=== PATIENT | female | born 1965 ===

== ENCOUNTER 2017-04-15 09:25 | Emergency (ER) | payer BC, OTHER ==
[2017-04-15 10:41] VITALS: BP 116/71
--- NOTE | 2017-04-15 10:46 | UC ---
Respiratory Complaint HPI - HPI Summary HPI Summary: Has been stressed recently at work--has now developed a cough, with chest congestion and left ear pain unsure about fever but has felt warm and is sleeping poorly - History of Current Complaint Chief Complaint: UCRespiratory Stated Complaint: COUGH,EARS,NECK Time Seen by Provider: 04/15/17 10:27 Hx Obtained From: Patient Hx Last Menstrual Period: YEARS ?: No Onset/Duration: Sudden Onset, Lasting Days, Still Present Timing: Constant Severity Initially: Moderate Severity Currently: Moderate Character: Cough: Nonproductive Aggravating Factors: Nothing Alleviating Factors: Nothing Associated Signs And Symptoms: Positive: Chills, URI PMH/Surg Hx/FS Hx/Imm Hx Previously Healthy: No Respiratory History: Asthma - Surgical History Surgical History: Yes Surgery Procedure, Year, and Place: X3, ABDOMINAL SCAR TISSUE, CHOLECYSTECTOMY - Family History Known Family History: Positive: None - Social History Occupation: Employed Full-time Lives: With Family Alcohol Use: None Substance Use Type: None Smoking Status (MU): Current Some Day Smoker Have You Smoked in the Last Year: Yes Cessation Counseling: Patient Advised to Stop Review of Systems Constitutional: Fever, Fatigue Skin: Negative Eyes: Negative ENT: Ear Ache - left Respiratory: Cough Cardiovascular: Negative Gastrointestinal: Negative Genitourinary: Negative Motor: Negative Neurovascular: Negative Musculoskeletal: Negative Neurological: Negative Psychological: Negative Is Patient Immunocompromised?: No All Other Systems Reviewed And Are Negative: Yes Physical Exam Triage Information Reviewed: Yes Appearance: Well-Appearing, No Pain Distress, Well-Nourished Vital Signs: Initial Vital Signs Temp 98.2 F 04/15/17 10:33 Pulse 75 04/15/17 10:33 Resp 18 04/15/17 10:33 BP 116/71 04/15/17 10:33 Pulse Ox 98 04/15/17 10:33 Vital Signs Reviewed: Yes Eye Exam: Normal Eyes: Positive: Conjunctiva Clear ENT Exam: Normal ENT: Positive: Normal ENT inspection, Hearing grossly normal, Pharynx normal, TMs normal - right, TM red - left, Uvula midline. Negative: Nasal congestion, Nasal drainage, Tonsillar swelling, Tonsillar exudate, Trismus, Muffled voice, Hoarse voice, Dental tenderness, Sinus tenderness Dental Exam: Normal Neck exam: Normal Neck: Positive: Supple, Nontender, No Lymphadenopathy Respiratory Exam: Normal Respiratory: Positive: Chest non-tender, Lungs clear, Normal breath sounds, No respiratory distress, No accessory muscle use Cardiovascular Exam: Normal Cardiovascular: Positive: RRR, No Murmur, Pulses Normal, Brisk Capillary Refill Musculoskeletal Exam: Normal Musculoskeletal: Positive: Strength Intact, ROM Intact, No Edema Neurological Exam: Normal Neurological: Positive: Alert, Muscle Tone Normal Psychological Exam: Normal Skin Exam: Normal UC Diagnostic Evaluation - Laboratory O2 Sat by Pulse Oximetry: 98 Respiratory Course/Dx - Course Course Of Treatment: increase fluids rest albuterol neb, amoxicillin follow with pcp prn - Differential Dx/Diagnosis Provider Diagnoses: Acute excebation of mild intermittent Asthma, left otitis Media Discharge - Discharge Plan Condition: Stable Disposition: HOME Prescriptions: Albuterol 2.5MG/3ML (0.083%)* [Ventolin 2.5 MG/3 ML NEB.TARUN*] 2.5 mg INH Q4H PRN #1 box PRN Reason: cough chest tightness Amoxicillin PO (*) [Amoxicillin 875 MG (*)] 875 mg PO BID #20 tab Patient Education Materials: Otitis Media (ED), Acute Cough (ED) Referrals: Greyson Bagley MD [Primary Care Provider] - If Needed
== END 2017-04-15 10:54 | disposition home or self-care (01) ==
LOC: UCCORT 09:25
DX: J45.21 Mild intermittent asthma with (acute) exacerbation (principal); H66.92 Otitis media, unspecified, left ear; Z72.0 Tobacco use
CPT/HCPCS: 99202; G0463

== ENCOUNTER 2018-06-26 11:20 | Emergency (ER) | payer BC, MEDICAID, OTHER ==
[2018-06-26 11:59] VITALS: BP 133/69
[2018-06-26] MEDS ORDERED: Albuterol/Ipratropium NEB.SOL* Albuterol 2.5 MG/Ipratropium 0.5 MG 3 ML INH ONE (12:17)
--- NOTE | 2018-06-26 12:19 | UC ---
Respiratory Complaint HPI - HPI Summary HPI Summary: Ill for 3-4 days, started as a sore throat but has progressed to a dry cough, mild wheezing and a feeling of lower lung congestion. Non-smoker, did not get a flu shot. Pt is fairly distraught about a daughter who met a man on line and the daughter left with him for [place], became , found out the man had lied to her and is now asking the mother to come out and get her so she can come home. Mother is very upset, thinking it is all her (the mother's) fault her daughter did this. I was able to provide encouragement. The mother is teary eyed but not suicidal or homicidal. We discussed a mental health evaluation in the ER but she states she just needed someone with whom she could vent. I do not believe she is a hazard to herself or others. - History of Current Complaint Chief Complaint: UCRespiratory Stated Complaint: COUGH, CHEST CONGESTION Time Seen by Provider: 06/26/18 12:01 Hx Obtained From: Patient Hx Last Menstrual Period: YEARS ?: No Onset/Duration: Gradual Onset Timing: Constant Severity Initially: Mild Severity Currently: Mild Pain Intensity: 0 Character: Cough: Nonproductive - Dry cough Aggravating Factors: Nothing Alleviating Factors: Nothing Associated Signs And Symptoms: Positive: Fever - Has not registered a fever but states she has had sweats, Wheezing - She states she feels like she has had some wheezing. - Risk Factors Pulmonary Embolism Risk Factors: Negative Cardiac Risk Factors: Negative Pseudomonas Risk Factors: Negative Tuberculosis Risk Factors: Negative - Allergies/Home Medications Allergies/Adverse Reactions: Allergies Allergy/AdvReac Type Severity Reaction Status Date / Time No Known Allergies Allergy Verified 06/26/18 11:55 Home Medications: Home Medications Levothyroxine TAB* [Synthroid TAB*] 100 mcg PO DAILY 06/26/18 [History Confirmed 06/26/18] busPIRone TAB* [Buspar TAB *] 15 mg PO TID 06/26/18 [History Confirmed 06/26/18] PMH/Surg Hx/FS Hx/Imm Hx Previously Healthy: Yes - Surgical History Surgical History: Yes Surgery Procedure, Year, and Place: X3, ABDOMINAL SCAR TISSUE, CHOLECYSTECTOMY - Family History Known Family History: Positive: None - Social History Occupation: Unemployed Alcohol Use: None Substance Use Type: None Smoking Status (MU): Current Some Day Smoker Have You Smoked in the Last Year: Yes Review of Systems All Other Systems Reviewed And Are Negative: Yes Constitutional: Positive: Other - Has had sweats, not necessarily at night Skin: Positive: Negative Eyes: Positive: Negative ENT: Positive: Sore Throat - Sore throat the first day but that has resolved, Nasal Discharge Respiratory: Positive: Cough - Dry, non-productive cough, feels like "congestion " in lower lungs mostly left side.. Negative: Shortness Of Breath Cardiovascular: Positive: Negative. Negative: Palpitations, Chest Pain Gastrointestinal: Positive: Vomiting, Diarrhea - Had one day of vomiting and diarrhea, but that has resolved. Genitourinary: Positive: Negative Motor: Positive: Negative Neurovascular: Positive: Negative Musculoskeletal: Positive: Negative Neurological: Positive: Negative Psychological: Positive: Anxious - Concerned about her daughter as stated above. Is Patient Immunocompromised?: No Physical Exam Triage Information Reviewed: Yes Appearance: Well-Appearing, No Pain Distress, Well-Nourished Vital Signs: Initial Vital Signs Temp 98 F 06/26/18 11:54 Pulse 90 06/26/18 11:54 Resp 21 06/26/18 11:54 BP 133/69 06/26/18 11:54 Pulse Ox 98 06/26/18 11:54 Vital Signs Reviewed: Yes Eye Exam: Normal ENT Exam: Normal Neck exam: Normal Respiratory: Positive: No respiratory distress, No accessory muscle use, Wheezing - Very mild wheezing with forced expiration, no rhonchi Cardiovascular Exam: Normal Musculoskeletal Exam: Normal Musculoskeletal: Positive: Strength Intact, ROM Intact Neurological: Positive: Alert, Muscle Tone Normal Psychological: Positive: Other: - Teary eyed when talking about situation with adult daughter Skin Exam: Normal Respiratory Course/Dx - Course Course Of Treatment: Comfortable here. CXR negative for infiltrate. May use nebulizer every 4 hours as needed. She felt improvement after the duoneb treatment and felt like she was taking a better breath. She is feeling better about the home and daughter situation since we talked. - Differential Dx/Diagnosis Differential Diagnosis/HQI/PQRI: Bronchitis Provider Diagnosis: Bronchitis Discharge - Sign-Out/Discharge Documenting (check all that apply): Patient Departure All imaging exams completed and their final reports reviewed: Yes - Discharge Plan Condition: Good Disposition: HOME Prescriptions: Albuterol 2.5MG/3ML (0.083%)* [Ventolin 2.5 MG/3 ML NEB.TARUN*] 2.5 mg INH Q4H PRN #1 box PRN Reason: Wheezing Benzonatate CAP* [Tessalon 100 MG CAP*] 100 mg PO TID PRN #30 cap PRN Reason: Cough Patient Education Materials: Acute Bronchitis (ED) Referrals: Greyson Bagley MD [Primary Care Provider] - Additional Instructions: Increase fluids, use your nebulizer every 4-6 hours as needed for wheezing or tight cough. Definite follow up with your primary care provider in 4-5 days if no improvement or if fever develops. - Billing Disposition and Condition Condition: GOOD Disposition: Home - Attestation Statements Provider Attestation: Per institutional requirements, I have reviewed the chart, however, I was not consulted specifically or made aware of this patient by the midlevel provider. I did not personally evaluate, interact with , or disposition this patient.
== END 2018-06-26 13:45 | disposition home or self-care (01) ==
LOC: UCCORT 11:20
DX: J40 Bronchitis, not specified as acute or chronic (principal); F17.200 Nicotine dependence, unspecified, uncomplicated
CPT/HCPCS: 71046; 99212; A9270-GY; G0463